=== PATIENT | female | born 1980 | race Caucasian/White ===

== ENCOUNTER 2023-01-10 14:37 | Emergency (ER) | payer SELFPAY ==
[2023-01-10 14:37] VITALS: BP 144/81; PULSE 103; RESP 16; TEMP 36.8; O2SAT 97; BMI 31.1
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
[2023-01-10 15:09] VITALS: BP 118/75; PULSE 81; RESP 16; TEMP 36.8; O2SAT 96
== END 2023-01-10 15:42 ==
LOC: ER 15:40
PROVIDERS: Emergency Provider Emergency Medicine; PCP Physician Assistant Medical
DX: S06.9X9A Unspecified intracranial injury with loss of consciousness of unspecified duration, initial encounter (principal); F10.929 Alcohol use, unspecified with intoxication, unspecified; W69.XXXA Accidental drowning and submersion while in natural water, initial encounter; F17.200 Nicotine dependence, unspecified, uncomplicated
CPT/HCPCS: 99283